=== PATIENT | male | born 1990 | race Caucasian/White ===

== ENCOUNTER 2017-06-10 08:04 | Inpatient (IN) | payer OTHER ==
[~2017-06-10] VITALS: Ht 180.3 cm; Wt 61.2 kg
--- NOTE | ~2017-06-10 | EKG ---
[address] [address] ELECTROCARDIOGRAM REPORT Name: ZABRINA SANTIZO Room #: 422-P ADM IN M.R.#: [id number] Admission: 06/10/17 Attend Phys: Marvin Patino DO Discharge: Date of : 89 Report #: [id number] THIS REPORT FOR: //name// [facility] ED Test Date: 2017-06-10 Test Time: 08:20:22 Pat Name: ZABRINA SANTIZO Department: Room: [facility] Gender: M Chief Scientific Officer: JAIRO : 1990 Requested By: Kingsley Kim Order Number: [id number] MD: Angel Howell Measurements Intervals [place] Rate: 78 P: 69 FL: 176 QRS: 36 QRSD: 101 T: 80 QT: 352 QTc: 401 Interpretive Statements Sinus rhythm RSR' in V1 or V2, probably normal variant Probable left ventricular hypertrophy Compared to ECG 06/06/2017 13:07:07 No evidence of infarct here on previous ekg Electronically Signed On 06-10-2017 15:30:59 CDT by Angel Howell [email or web address] <ELECTRONICALLY SIGNED> By: Angel Howell MD 06/10/17 1530 9 9 Angel Howell MD /EPI
[~2017-06-10 08:04] MED LIST: PROPRANOLOL 20M20 MG PO; PROPYLTHIOURACI50 MG PO
[2017-06-10 08:07] VITALS: BP 124/80
[2017-06-10 08:56] LABS: HEMATOCRIT 45.3 % (42.0-52.0); HEMOGLOBIN 15.4 gm/dL (14.0-18.0); MCH 28.5 pg (26.0-34.0); MCV 83.8 fL (80.0-100.0); PLATELET COUNT 295 thou/uL (150-400); RDW 12.4 % (10.5-14.5); WBC 5.5 thou/uL (4.0-11.0)
[2017-06-10 08:58] LABS: MANUAL DIFF YES
[2017-06-10 09:00] LABS: CALCIUM 9.6 mg/dL (8.5-10.1); CREATININE 0.9 mg/dL (0.7-1.3); POTASSIUM 4.1 mmol/L (3.5-5.1)
[2017-06-10 09:05] LABS: ALBUMIN 3.7 g/dL (3.4-5.0); TOTAL BILIRUBIN 0.5 mg/dL (<0.1-1.0); TOTAL PROTEIN 6.9 g/dL (6.4-8.2)
[2017-06-10] MEDS ORDERED: BRINTELLIX20 MG PO (09:06)
[2017-06-10 09:27] LABS: ABSOLUTE NEUTROPHILS 2.7 thou/uL (1.4-8.2); PLATELET ESTIMATE NORMAL; TOTAL CELL COUNT 100
[2017-06-10 10:05] VITALS: BP 128/55
[2017-06-10 10:14] VITALS: BP 123/66
[2017-06-10 16:04] VITALS: BP 120/68
[2017-06-10 19:43] VITALS: BP 126/61
[2017-06-11 03:15] LABS: FREE T3 9.7 pg/mL (2.0-4.4)
[2017-06-11 03:19] VITALS: BP 111/62
[2017-06-11 05:58] LABS: HEMATOCRIT 44.2 % (42.0-52.0); HEMOGLOBIN 15.2 gm/dL (14.0-18.0); MCH 28.9 pg (26.0-34.0); MCHC 34.4 g/dL (28.0-37.0); MCV 83.9 fL (80.0-100.0); PLATELET COUNT 265 thou/uL (150-400); RBC 5.27 mil/uL (4.50-6.00); RDW 12.4 % (10.5-14.5); WBC 4.6 thou/uL (4.0-11.0)
[2017-06-11 05:59] LABS: MANUAL DIFF YES
[2017-06-11 06:09] LABS: CALCIUM 9.3 mg/dL (8.5-10.1); CREATININE 0.8 mg/dL (0.7-1.3); POTASSIUM 3.8 mmol/L (3.5-5.1)
[2017-06-11 09:55] VITALS: BP 117/79
[2017-06-11 10:56] LABS: TOTAL CELL COUNT 100
[2017-06-11 10:57] LABS: ANISOCYTOSIS SLIGHT
[2017-06-11] MEDS ORDERED: METHIMAZOLE5 MG PO (11:07)
[2017-06-11 11:15] VITALS: BP 117/79
== END 2017-06-11 11:38 | disposition home or self-care (01) | DRG 645 ==
LOC: ER 08:04 → EROBS 09:30 → 4E 10:22
PROVIDERS: Emergency Medicine; Family Medicine; Otolaryngology Plastic Surgery within the Head & Neck
DX: E05.90 Thyrotoxicosis, unspecified without thyrotoxic crisis or storm (principal); F41.9 Anxiety disorder, unspecified; F32.9 Major depressive disorder, single episode, unspecified; Z79.899 Other long term (current) drug therapy
CPT/HCPCS: 10183

== ENCOUNTER 2019-04-01 21:25 | Emergency (ER) | payer OTHER ==
[~2019-04-01] VITALS: Ht 180.3 cm; Wt 73.9 kg
[~2019-04-01 21:25] MED LIST changes: +BRINTELLIX20 MG PO; +METHIMAZOLE5 MG PO
[2019-04-01 22:38] LABS: URINE BILIRUBIN NEGATIVE (Negative); URINE BLOOD NEGATIVE (Negative); URINE CLARITY CLEAR; URINE COLOR YELLOW; URINE GLUCOSE-RANDOM* NEGATIVE (Negative); URINE KETONES NEGATIVE (Negative); URINE LEUKOCYTES-REFLEX NEGATIVE (Negative); URINE NITRITE-REFLEX NEGATIVE (Negative); URINE PROTEIN (DIPSTICK) NEGATIVE (Negative); URINE SPECIFIC GRAVITY 1.025 (1.005-1.035); URINE UROBILINOGEN 0.2 E.U./dl (0.2-1.0)
[2019-04-01 22:40] LABS: ABSOLUTE NEUTROPHILS 2.7 thou/uL (1.4-8.2); HEMATOCRIT 45.3 % (42.0-52.0); HEMOGLOBIN 15.6 gm/dL (14.0-18.0); LYMPHOCYTES 34.2 % (24.0-44.0); MCH 29.6 pg (26.0-34.0); MCHC 34.3 g/dL (28.0-37.0); MCV 86.4 fL (80.0-100.0); MONOCYTES 9.9 % (1.0-8.0); PLATELET COUNT 230 thou/uL (150-400); POLYS 52.9 % (36.0-66.0); RBC 5.25 mil/uL (4.50-6.00); RDW 12.8 % (10.5-14.5)
[2019-04-01 22:44] LABS: CALCIUM 9.1 mg/dL (8.5-10.1); POTASSIUM 3.5 mmol/L (3.5-5.1)
[2019-04-01 22:50] LABS: ALBUMIN 4.2 g/dL (3.4-5.0); TOTAL BILIRUBIN 0.6 mg/dL (<0.1-1.0)
[2019-04-02 00:08] VITALS: BP 112/71
== END 2019-04-02 00:09 | disposition home or self-care (01) ==
LOC: ER 21:25
PROVIDERS: Emergency Medicine
DX: R10.9 Unspecified abdominal pain (principal); K92.1 Melena; F41.9 Anxiety disorder, unspecified; E05.90 Thyrotoxicosis, unspecified without thyrotoxic crisis or storm; K21.9 Gastro-esophageal reflux disease without esophagitis; Z79.899 Other long term (current) drug therapy